=== PATIENT | female | born 1945 | race Caucasian/White ===

== ENCOUNTER 2017-10-31 20:18 | Inpatient (IN) | payer MEDICARE ==
[~2017-10-31] VITALS: Ht 162.6 cm; Wt 55.4 kg
[2017-10-31] MEDS ORDERED: hydrALAzine 20 MG/ML, 1ML IVPush PRN (22:00)
[2017-10-31] MEDS ORDERED: ONDANSETRON 2MG/ML, 2ML IVPush PRN (22:00)
[2017-10-31] MEDS ORDERED: ACETAMINOPHEN 325 MG TABLET PO PRN (22:00)
[2017-10-31] MEDS ORDERED: BISACODYL 10 MG SUPP PR PRN (22:00)
[2017-10-31] MEDS ORDERED: PLEASE ENTER HEIGHT AND WEIGHT MC SCH (22:00)
[2017-10-31] MEDS ORDERED: NICOTINE 21 MG/24 HR PATCH.TD24 TD SCH (22:00)
[2017-10-31] MEDS ORDERED: PLEASE ENTER ALLERGIES MC SCH ×2 (22:30→23:45)
[2017-11-01 01:20] VITALS: BP 115/72
[2017-11-01] MEDS: NS + 20MEQ KCL 1,000 ML IV SCH ×2 (01:42→11:37)
[2017-11-01] MEDS: morphine SULFATE 10 MG/ML, 1ML IVPush PRN ×5 (02:00→18:28)
[2017-11-01 05:42] LABS: ALANINE AMINOTRANSFERASE 17 U/L (12-78); ALBUMIN 2.3 g/dL (3.4-5.0); ANION GAP 4 mmol/L (5-15); CALCIUM 7.5 mg/dL (8.5-10.1); CHLORIDE 107 mmol/L (98-107); CREATININE 0.63 mg/dL (0.55-1.02)
[2017-11-01 05:43] LABS: BASOPHILS # (AUTO) 0.04 x10^3/uL (0-0.1); BASOPHILS % (AUTO) 1 % (0-1); EOSINOPHILS # (AUTO) 0.24 x10^3/uL (0-0.4); EOSINOPHILS % (AUTO) 3 % (1-7); LYMPHOCYTES # (AUTO) 1.56 x10^3/uL (1-3.4); LYMPHOCYTES % (AUTO) 21 % (22-44); MD NO; MEAN CORPUSCULAR HEMOGLOBIN 31.4 pg (27.0-34.8); MEAN CORPUSCULAR HGB CONC 33.3 g/dL (32.4-35.8); MEAN CORPUSCULAR VOLUME 94.5 fL (80-100); MEAN PLATELET VOLUME 9.1 fL (7.4-10.4); MONOCYTES # (AUTO) 0.54 x10^3/uL (0.2-0.8); MONOCYTES % (AUTO) 8 % (2-9); NEUTROPHILS # (AUTO) 4.89 x10^3/uL (1.8-6.8); NEUTROPHILS % (AUTO) 67 % (42-75); PLATELET COUNT 199 x10^3/uL (130-400); RED BLOOD COUNT 3.86 x10^6/uL (3.82-5.3)
[2017-11-01 05:45] LABS: ALKALINE PHOSPHATASE 58 U/L (45-117); BILIRUBIN,TOTAL 0.4 mg/dL (0.2-1.0); TOTAL PROTEIN 4.9 g/dL (6.4-8.2)
[2017-11-01 06:33] VITALS: BP 128/76
[2017-11-01] MEDS: NICOTINE 21 MG/24 HR PATCH.TD24 TD SCH (08:52)
[2017-11-01 12:19] VITALS: BP 122/74
[2017-11-01] MEDS: METOCLOPRAMIDE 5 MG/ML, 2ML IVPush SCH ×2 (16:02→21:05)
[2017-11-01] MEDS ORDERED: MAGNESIUM SULFATE PMX 4GM/100M 100 ML IV ONE (16:30)
[2017-11-01 18:48] VITALS: BP 101/62
[2017-11-02 00:41] VITALS: BP 96/69
[2017-11-02] MEDS: NS + 20MEQ KCL 1,000 ML IV SCH (02:27)
[2017-11-02] MEDS: morphine SULFATE 10 MG/ML, 1ML IVPush PRN ×4 (02:28→20:49)
[2017-11-02 05:47] LABS: BASOPHILS # (AUTO) 0.05 x10^3/uL (0-0.1); BASOPHILS % (AUTO) 1 % (0-1); CALCIUM 7.6 mg/dL (8.5-10.1); CHLORIDE 110 mmol/L (98-107); EOSINOPHILS # (AUTO) 0.33 x10^3/uL (0-0.4); EOSINOPHILS % (AUTO) 6 % (1-7); LYMPHOCYTES # (AUTO) 1.76 x10^3/uL (1-3.4); LYMPHOCYTES % (AUTO) 30 % (22-44); MD NO; MEAN CORPUSCULAR HEMOGLOBIN 31.6 pg (27.0-34.8); MEAN CORPUSCULAR HGB CONC 33.7 g/dL (32.4-35.8); MEAN CORPUSCULAR VOLUME 93.8 fL (80-100); MEAN PLATELET VOLUME 9.1 fL (7.4-10.4); MONOCYTES # (AUTO) 0.48 x10^3/uL (0.2-0.8); MONOCYTES % (AUTO) 8 % (2-9); NEUTROPHILS # (AUTO) 3.34 x10^3/uL (1.8-6.8); NEUTROPHILS % (AUTO) 56 % (42-75); PLATELET COUNT 212 x10^3/uL (130-400); RED BLOOD COUNT 4.06 x10^6/uL (3.82-5.3); RED CELL DISTRIBUTION WIDTH 13.8 % (9.6-15.2)
[2017-11-02 05:53] LABS: ALANINE AMINOTRANSFERASE 17 U/L (12-78); ALBUMIN 2.2 g/dL (3.4-5.0); ALKALINE PHOSPHATASE 58 U/L (45-117); ANION GAP 4 mmol/L (5-15); BILIRUBIN,TOTAL 0.5 mg/dL (0.2-1.0)
[2017-11-02 06:37] VITALS: BP 129/77
[2017-11-02] MEDS: NICOTINE 21 MG/24 HR PATCH.TD24 TD SCH (08:06)
[2017-11-02] MEDS ORDERED: POTASSIUM PHOSPHATE 22 MEQ in SODIUM CHLORIDE 0.9% 500 ML IV ONE (09:00)
[2017-11-02] MEDS: METOCLOPRAMIDE 5 MG/ML, 2ML IVPush SCH ×2 (11:23→17:10)
[2017-11-02 14:24] VITALS: BP 113/71
[2017-11-02 20:03] VITALS: BP 133/84
[2017-11-02] MEDS: ENOXAPARIN 40 MG/0.4 ML SQ SCH (20:49)
[2017-11-03 00:04] VITALS: BP 129/74
[2017-11-03] MEDS: NS + 20MEQ KCL 1,000 ML IV SCH ×3 (02:08→23:21)
[2017-11-03] MEDS: morphine SULFATE 10 MG/ML, 1ML IVPush PRN ×4 (04:44→23:21)
[2017-11-03 05:38] LABS: BASOPHILS # (AUTO) 0.02 x10^3/uL (0-0.1); BASOPHILS % (AUTO) 1 % (0-1); EOSINOPHILS # (AUTO) 0.18 x10^3/uL (0-0.4); EOSINOPHILS % (AUTO) 4 % (1-7); LYMPHOCYTES # (AUTO) 1.28 x10^3/uL (1-3.4); LYMPHOCYTES % (AUTO) 26 % (22-44); MD NO; MEAN CORPUSCULAR HEMOGLOBIN 32.2 pg (27.0-34.8); MEAN CORPUSCULAR VOLUME 94.8 fL (80-100); MEAN PLATELET VOLUME 8.8 fL (7.4-10.4); MONOCYTES # (AUTO) 0.37 x10^3/uL (0.2-0.8); MONOCYTES % (AUTO) 7 % (2-9); NEUTROPHILS # (AUTO) 3.14 x10^3/uL (1.8-6.8); NEUTROPHILS % (AUTO) 63 % (42-75); PLATELET COUNT 225 x10^3/uL (130-400); RED BLOOD COUNT 4.22 x10^6/uL (3.82-5.3); RED CELL DISTRIBUTION WIDTH 13.7 % (9.6-15.2)
[2017-11-03 05:47] LABS: CHLORIDE 110 mmol/L (98-107)
[2017-11-03 05:56] LABS: ALANINE AMINOTRANSFERASE 20 U/L (12-78); ALBUMIN 2.3 g/dL (3.4-5.0); ALKALINE PHOSPHATASE 61 U/L (45-117); ANION GAP 7 mmol/L (5-15); BILIRUBIN,TOTAL 0.4 mg/dL (0.2-1.0); CALCIUM 7.4 mg/dL (8.5-10.1); CREATININE 0.48 mg/dL (0.55-1.02); TOTAL PROTEIN 5.2 g/dL (6.4-8.2)
[2017-11-03 08:05] VITALS: BP 148/89
[2017-11-03] MEDS: NICOTINE 21 MG/24 HR PATCH.TD24 TD SCH (08:35)
[2017-11-03 09:21] LABS: INTERNATIONAL NORMALIZED RATIO 0.97 (0.93-1.1)
[2017-11-03] MEDS ORDERED: OMNIPAQUE 350 MG/ML, 100ML BOTTLE ONE (10:55)
[2017-11-03 13:34] VITALS: BP 117/68
[2017-11-03] MEDS: ENOXAPARIN 40 MG/0.4 ML SQ SCH (20:10)
[2017-11-03 21:45] VITALS: BP 128/82
[2017-11-04 00:40] VITALS: BP 106/72
[2017-11-04 08:34] VITALS: BP 111/78
[2017-11-04] MEDS: NICOTINE 21 MG/24 HR PATCH.TD24 TD SCH (09:52)
[2017-11-04] MEDS: NS + 20MEQ KCL 1,000 ML IV SCH ×2 (09:55→17:36)
[2017-11-04] MEDS: morphine SULFATE 10 MG/ML, 1ML IVPush PRN ×3 (10:53→20:06)
[2017-11-04] MEDS: PANTOPROZOLE 40MG TABLET PO SCH (12:26)
[2017-11-04 14:30] VITALS: BP 134/88
[2017-11-04 19:54] VITALS: BP 129/85
[2017-11-04] MEDS: ENOXAPARIN 40 MG/0.4 ML SQ SCH (20:06)
[2017-11-05 01:49] VITALS: BP 120/77
[2017-11-05] MEDS: morphine SULFATE 10 MG/ML, 1ML IVPush PRN ×4 (02:36→20:12)
[2017-11-05] MEDS: NS + 20MEQ KCL 1,000 ML IV SCH ×2 (04:08→17:37)
[2017-11-05 05:20] LABS: ANION GAP 8 mmol/L (5-15); CALCIUM 7.8 mg/dL (8.5-10.1); CHLORIDE 107 mmol/L (98-107); CREATININE 0.68 mg/dL (0.55-1.02)
[2017-11-05 08:00] VITALS: BP 114/83
[2017-11-05 09:10] LABS: BASOPHILS # (AUTO) 0.01 x10^3/uL (0-0.1); BASOPHILS % (AUTO) 0 % (0-1); EOSINOPHILS # (AUTO) 0.05 x10^3/uL (0-0.4); EOSINOPHILS % (AUTO) 1 % (1-7); LYMPHOCYTES # (AUTO) 1.24 x10^3/uL (1-3.4); LYMPHOCYTES % (AUTO) 18 % (22-44); MD NO; MEAN CORPUSCULAR HEMOGLOBIN 31.6 pg (27.0-34.8); MEAN CORPUSCULAR HGB CONC 33.7 g/dL (32.4-35.8); MEAN CORPUSCULAR VOLUME 93.6 fL (80-100); MEAN PLATELET VOLUME 9.5 fL (7.4-10.4); MONOCYTES % (AUTO) 6 % (2-9); NEUTROPHILS # (AUTO) 5.21 x10^3/uL (1.8-6.8); NEUTROPHILS % (AUTO) 75 % (42-75); PLATELET COUNT 246 x10^3/uL (130-400); RED BLOOD COUNT 4.25 x10^6/uL (3.82-5.3); RED CELL DISTRIBUTION WIDTH 13.9 % (9.6-15.2)
[2017-11-05] MEDS: NICOTINE 21 MG/24 HR PATCH.TD24 TD SCH (09:59)
[2017-11-05] MEDS: PANTOPROZOLE 40MG TABLET PO SCH (10:00)
[2017-11-05 12:52] LABS: CHOL/HDL RATIO 4.1; LDL/HDL RATIO 2.4 (0.5-3.0)
[2017-11-05 14:22] LABS: MICROSCOPIC NOT IND
[2017-11-05 15:40] VITALS: BP 124/71
[2017-11-05 19:21] VITALS: BP 126/76
[2017-11-05] MEDS: ENOXAPARIN 40 MG/0.4 ML SQ SCH (20:12)
[2017-11-06] MEDS: NS + 20MEQ KCL 1,000 ML IV SCH ×2 (00:47→21:44)
[2017-11-06 02:27] VITALS: BP_SYST 108
[2017-11-06] MEDS: morphine SULFATE 10 MG/ML, 1ML IVPush PRN ×3 (03:43→19:40)
[2017-11-06 04:45] LABS: BASOPHILS # (AUTO) 0.02 x10^3/uL (0-0.1); BASOPHILS % (AUTO) 0 % (0-1); EOSINOPHILS # (AUTO) 0.22 x10^3/uL (0-0.4); EOSINOPHILS % (AUTO) 3 % (1-7); LYMPHOCYTES # (AUTO) 1.67 x10^3/uL (1-3.4); LYMPHOCYTES % (AUTO) 24 % (22-44); MD NO; MEAN CORPUSCULAR HEMOGLOBIN 31.7 pg (27.0-34.8); MEAN CORPUSCULAR HGB CONC 33.6 g/dL (32.4-35.8); MEAN CORPUSCULAR VOLUME 94.3 fL (80-100); MEAN PLATELET VOLUME 8.5 fL (7.4-10.4); MONOCYTES # (AUTO) 0.48 x10^3/uL (0.2-0.8); MONOCYTES % (AUTO) 7 % (2-9); NEUTROPHILS # (AUTO) 4.62 x10^3/uL (1.8-6.8); NEUTROPHILS % (AUTO) 66 % (42-75); PLATELET COUNT 250 x10^3/uL (130-400); RED BLOOD COUNT 3.92 x10^6/uL (3.82-5.3); RED CELL DISTRIBUTION WIDTH 13.7 % (9.6-15.2)
[2017-11-06 04:56] LABS: CHLORIDE 106 mmol/L (98-107)
[2017-11-06 05:03] LABS: ALANINE AMINOTRANSFERASE 20 U/L (12-78); ALKALINE PHOSPHATASE 56 U/L (45-117); BILIRUBIN,TOTAL 0.6 mg/dL (0.2-1.0); CALCIUM 7.8 mg/dL (8.5-10.1); CREATININE 0.45 mg/dL (0.55-1.02); TOTAL PROTEIN 4.7 g/dL (6.4-8.2)
[2017-11-06 05:39] LABS: ANION GAP 8 mmol/L (5-15)
[2017-11-06 07:39] VITALS: BP 130/81
[2017-11-06] MEDS: PANTOPROZOLE 40MG TABLET PO SCH (08:58)
[2017-11-06] MEDS: NICOTINE 21 MG/24 HR PATCH.TD24 TD SCH (08:58)
[2017-11-06 13:35] VITALS: BP 121/77
[2017-11-06] MEDS ORDERED: EPHEDRINE 50 MG/ML, 1ML ONE (16:49)
[2017-11-06] MEDS ORDERED: PROPOFOL 10 MG/ML, 20ML ONE (16:49)
[2017-11-06] MEDS ORDERED: FENTANYL PF 100 MCG/2ML ONE (16:51)
[2017-11-06] MEDS ORDERED: MIDAZOLAM 1 MG/ML, 2ML ONE (16:51)
[2017-11-06] MEDS ORDERED: HALOPERIDOL 5 MG/ML IV PRN (17:30)
[2017-11-06] MEDS ORDERED: LABETALOL 5MG/ML, 20ML IV PRN (17:30)
[2017-11-06] MEDS ORDERED: LORazepam 2 MG/ML, 1ML IVPush PRN (17:30)
[2017-11-06] MEDS ORDERED: FENTANYL PF 100 MCG/2ML IV PRN (17:30)
[2017-11-06] MEDS ORDERED: HYDROmorphone 1 MG/ML, 1ML IV PRN (17:30)
[2017-11-06] MEDS ORDERED: PROMETHAZINE 25 MG/ML, 1ML IV PRN (17:30)
[2017-11-06] MEDS ORDERED: OXYcodone 5 MG/5 ML ORAL.SOL UDC PO PRN (17:30)
[2017-11-06] MEDS ORDERED: hydrALAzine 20 MG/ML, 1ML IV PRN (17:30)
[2017-11-06] MEDS ORDERED: ALBUTEROL SULFATE 2.5 MG/3 ML NPPB PRN (17:30)
[2017-11-06] MEDS ORDERED: MEPERIDINE/PF 25MG/0.5ML IVPush PRN (17:30)
[2017-11-06 18:10] VITALS: BP 130/84
[2017-11-06] MEDS: ENOXAPARIN 40 MG/0.4 ML SQ SCH (19:40)
[2017-11-07 00:26] VITALS: BP 91/57
[2017-11-07] MEDS: morphine SULFATE 10 MG/ML, 1ML IVPush PRN (00:36)
[2017-11-07 04:27] VITALS: BP 119/73
[2017-11-07 04:58] LABS: BASOPHILS # (AUTO) 0.08 x10^3/uL (0-0.1); BASOPHILS % (AUTO) 1 % (0-1); EOSINOPHILS % (AUTO) 2 % (1-7); LYMPHOCYTES # (AUTO) 1.86 x10^3/uL (1-3.4); LYMPHOCYTES % (AUTO) 22 % (22-44); MD NO; MEAN CORPUSCULAR HEMOGLOBIN 31.9 pg (27.0-34.8); MEAN CORPUSCULAR HGB CONC 33.8 g/dL (32.4-35.8); MEAN CORPUSCULAR VOLUME 94.5 fL (80-100); MEAN PLATELET VOLUME 8.3 fL (7.4-10.4); MONOCYTES # (AUTO) 0.51 x10^3/uL (0.2-0.8); MONOCYTES % (AUTO) 6 % (2-9); NEUTROPHILS # (AUTO) 5.63 x10^3/uL (1.8-6.8); NEUTROPHILS % (AUTO) 68 % (42-75); PLATELET COUNT 286 x10^3/uL (130-400); RED BLOOD COUNT 4.25 x10^6/uL (3.82-5.3); RED CELL DISTRIBUTION WIDTH 13.7 % (9.6-15.2)
[2017-11-07 05:11] LABS: ANION GAP 6 mmol/L (5-15); CALCIUM 7.8 mg/dL (8.5-10.1); CHLORIDE 106 mmol/L (98-107); CREATININE 0.54 mg/dL (0.55-1.02)
[2017-11-07] MEDS ORDERED: MAGNESIUM SULFATE PMX 2GM/50ML 50 ML IV ONE (07:00)
[2017-11-07 07:10] VITALS: BP 101/66
[2017-11-07] MEDS: PANTOPROZOLE 40MG TABLET PO SCH (10:18)
[2017-11-07] MEDS: NICOTINE 21 MG/24 HR PATCH.TD24 TD SCH (10:18)
[2017-11-07 12:18] VITALS: BP 114/74
[2017-11-07] MEDS: NS + 20MEQ KCL 1,000 ML IV SCH (17:44)
== END 2017-11-07 19:15 | disposition home or self-care (01) | DRG 939 ==
LOC: 4NOR 20:18
PROVIDERS: ADMIT Hospitalist; ATTEND Hospitalist
PROC: 0UDB7ZZ Extraction of Endometrium, Via Natural or Artificial Opening (ICD-10-PCS; principal; 2017-11-06 20:15)
DX: R18.8 Other ascites (principal); E43 Unspecified severe protein-calorie malnutrition; K66.8 Other specified disorders of peritoneum; I10 Essential (primary) hypertension; M81.0 Age-related osteoporosis without current pathological fracture; J44.9 Chronic obstructive pulmonary disease, unspecified; E83.42 Hypomagnesemia; F17.210 Nicotine dependence, cigarettes, uncomplicated; G89.29 Other chronic pain; M54.9 Dorsalgia, unspecified; K59.09 Other constipation; K21.9 Gastro-esophageal reflux disease without esophagitis; Z66 Do not resuscitate
CPT/HCPCS: 0399T; 36415; 71260; 74177; 76705; 76856; 80048; 80053; 80061; 81003; 82042; 82150; 82570; 82945; 83735; 83986; 84100; 84156; 84157; 85025; 85610; 85730; 86304; 87015; 87070; 87075; 87102; 87116; 87205; 87206; 88112; 88305; 93306; J1650; J2250; J2405; J2704; J3010; J3480; Q9967; J2270; J2765; J3475; J7040